=== PATIENT | male | born 1970 | race Caucasian/White ===

== ENCOUNTER → 2017-01-23 | Day surgery (SDC) | payer OTHER ==
[~2017-01-23] VITALS: Ht 185.4 cm; Wt 93.0 kg
--- NOTE | 2017-01-23 23:13 | RADIOLOGY REPORT ---
EXAMINATION: XR ANKLE, RIGHT CLINICAL INFORMATION: Right ankle subchondroplasty. COMPARISON: None. TECHNIQUE: 33 intraoperative views of the right ankle were obtained. FLUOROSCOPY TIME: 4.8 minutes. FINDINGS: The study demonstrates multiple images from an intraoperative subchondroplasty procedure in multiple projections. The study demonstrates placement of a linear metallic device in the talus. IMPRESSION: Multiple images of the right ankle during subchondroplasty procedure in the OR.
--- NOTE | 2017-02-11 10:08 | Operative Report ---
Operative/Inv Procedure Report Surgery Date: 01/23/17 Name of Procedure: #1 right ankle arthroscopic debridement #2 open treatment of right talus insufficiency fracture with subchondral plasty procedure Pre-Operative Diagnosis: #1 osteoarthritis right tibiotalar joint #2 insufficiency fracture and edema right talus Post-Operative Diagnosis: Same Estimated Blood Loss: none Surgeon/Microbiology Director: RAVEN BRADLEY MD Anesthesia: laryngeal mask airway IV Fluids: See anesthesia record Implants: None Specimens: None Complications: None Condition: Stable Operative Indication: Patient's a 46-year-old male who has moderate osteoarthritis of the right tibiotalar joint as well and has significant edema of the right talar body at the posterior facet of the subtalar joint which was confirmed on MRI. The patient has constant pain and swelling in the ankle. It has been difficult for him to participate in any sort of exercise or athletic activities due to his ankle pain. He was indicated for arthroscopic debridement of the tibiotalar joint as well as a subchondral plasty procedure of the right talus in order to improve the hindfoot symptoms with fixation of the bone marrow edema of the talus. Operative/Procedure Note Note: Once informed consent was obtained and the correct limb was identified the patient was brought to the operating room placed on table in supine position. After initiation of general endotracheal anesthesia the left leg was placed in a well-leg mars for traction on the ankle joint for arthroscopy. Prior to the arthroscopic portion of the procedure fluoroscopy was brought in and the subchondral plasty was performed. The talus was identified in the AP and lateral planes and using a lateral entry point in order to provide the best placement of the calcium phosphate solution the procedure was begun. A small incision was made just anterior to the fibula which allowed entry into the lateral talar body. Under direct visualization with the C-arm the cannula was introduced into the talus and the calcium phosphate had been mixed on the back table and 4 syringes of material was injected into the talar body while using live fluoroscopy in order to show the proper filling of the talar body defect. Once or done with the injection we let the medics set for 8 min. before the cannula and needle was removed. That wound was irrigated and closed with 3-0 nylon interrupted sutures. We then proceeded to Portion of the procedure. The ankle is placed in an ankle distractor noninvasively. A lateral portal was made using a neck and spread technique and the scope was introduced into the tibiotalar joint. There is significant synovitis anteriorly in the tibiotalar joint. A medial portal made under direct visualization and shaving device is used to debride significant amount of synovium. There was a medium sized osteophyte off the anterior tibia which was shaved with the shaving device as well. The diagnostic arthroscopy was then carried out. There are no significant full-thickness chondral defects of the talar body or of the distal tibia. The posterior aspect ankle was inspected with no loose bodies seen. The collateral ligaments and the deltoid ligaments were intact. Using the shaving device further debridement of the inflamed synovium was performed. Once adequate debridement of the joint and then done REMOVED and the joint was irrigated with saline solution. The scope portals are closed with 3-0 nylon interrupted sutures and a sterile dressing was applied. The patient was awakened from stable condition.
== END ==
LOC: STS 02:18
DX: M19.071 Primary osteoarthritis, right ankle and foot (principal); M84.474A Pathological fracture, right foot, initial encounter for fracture
CPT/HCPCS: 73600-RT; J0171; J0690; J2250